=== PATIENT | male | born 1960 | race Caucasian/White ===

== ENCOUNTER 2016-10-11 09:35 | Outpatient (CLI) | payer MEDICARE, MEDICAID | END 2016-10-11 09:36 | disposition home or self-care (01) | DX: S01.84XA Puncture wound with foreign body of other part of head, initial encounter (principal); W34.010A Accidental discharge of airgun, initial encounter ==

== ENCOUNTER 2017-06-06 18:39 | Outpatient (CLI) | payer MEDICARE, MEDICAID | END 2017-06-06 18:40 | disposition critical access hospital (66) | LOC: EMS 18:39 | PROVIDERS: ATTEND Surgery | DX: R41.82 Altered mental status, unspecified (principal) ==

== ENCOUNTER 2017-06-06 18:53 | Emergency (ER) | payer MEDICARE, MEDICAID ==
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
[2017-06-06 19:26] VITALS: BP 165/86
== END 2017-06-06 19:55 | disposition home or self-care (01) ==
LOC: EDUNIT# → ED 18:53
DX: F12.920 Cannabis use, unspecified with intoxication, uncomplicated (principal); F17.200 Nicotine dependence, unspecified, uncomplicated; Z59.0 Homelessness
CPT/HCPCS: 99282; 99283

== ENCOUNTER 2017-06-06 23:00 | Outpatient (CLI) | payer MEDICARE, MEDICAID | END 2017-06-06 23:01 | disposition home or self-care (01) | LOC: EMS 23:00 | PROVIDERS: ATTEND Surgery | DX: R40.20 Unspecified coma (principal); R41.82 Altered mental status, unspecified | CPT/HCPCS: A0425; A0429 ==

== ENCOUNTER 2017-06-06 23:14 | Emergency (ER) | payer MEDICARE, MEDICAID ==
[2017-06-06 23:24] VITALS: BP 153/80
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
== END 2017-06-07 01:25 | disposition left against medical advice (07) ==
LOC: EDUNIT# → ED 23:14
DX: F12.920 Cannabis use, unspecified with intoxication, uncomplicated (principal); S01.01XA Laceration without foreign body of scalp, initial encounter; X58.XXXA Exposure to other specified factors, initial encounter; F17.200 Nicotine dependence, unspecified, uncomplicated; Z59.0 Homelessness; Z62.819 Personal history of unspecified abuse in childhood
CPT/HCPCS: 99282; 99283

== ENCOUNTER 2017-10-18 15:58 | Outpatient (CLI) | payer MEDICARE, MEDICAID | END 2017-10-18 15:59 | disposition critical access hospital (66) | LOC: EMS 15:58 | PROVIDERS: ATTEND Surgery | DX: R10.10 Upper abdominal pain, unspecified (principal) | CPT/HCPCS: A0425; A0429 ==

== ENCOUNTER 2017-10-18 16:13 | Inpatient (IN) | payer MEDICARE, MEDICAID ==
[2017-10-18] MEDS ORDERED: ONDANSETRON 4 MG/2 ML VIAL IVP STA (16:22)
[2017-10-18] MEDS ORDERED: MORPHINE 10 MG/ML VIAL IVP STA ×2 (16:22→17:33)
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
[2017-10-18] MEDS ORDERED: IOPAMIDOL-300 100 ML VIAL ONE (16:39)
[2017-10-18 16:50] LABS: BASOPHILS % (AUTO) 0.9 %; EOSINOPHILS % (AUTO) 0.4 %; HGB - HEMOGLOBIN 13.1 g/dL (14.0-18.0); LYMPHOCYTES % (AUTO) 42.3 %; MEAN CORPUSCULAR HEMOGLOBIN 30.9 pg (27.0-31.0); MEAN CORPUSCULAR HGB CONC 34.3 g/dL (32.0-36.0); MEAN CORPUSCULAR VOLUME 90.1 fL (80.0-94.0); MEAN PLATELET VOLUME 7.9 fL (7.4-11.4); MONOCYTES % (AUTO) 13.9 %; NEUTROPHILS % (AUTO) 42.5 %; PLT - PLATELET COUNT 134 10^3/uL (130-450); RED BLOOD COUNT 4.23 10^6/uL (4.70-6.10); RED CELL DISTRIBUTION WIDTH 14.1 % (12.0-15.0); WHITE BLOOD COUNT 8.5 x10^3/uL (4.8-10.8)
[2017-10-18 16:51] LABS: ABNORMAL LYMPHS % (MANUAL) 0 %
[2017-10-18 17:01] LABS: ALBUMIN 3.3 g/dL (3.2-5.5); ALBUMIN/GLOBULIN RATIO 0.9 (1.0-2.2); ALKALINE PHOSPHATASE 474 IU/L (42-121); ALT ALANINE AMINOTRANSFERASE 947 IU/L (10-60); AST ASPARTATE AMINOTRANSFERASE 1074 IU/L (10-42); BILIRUBIN,TOTAL 1.6 mg/dL (0.2-1.0); BUN - BLOOD UREA NITROGEN 10 mg/dL (6-20); CALCIUM 8.4 mg/dL (8.5-10.3); CARBON DIOXIDE - CO2 27 mmol/L (21-32); CHLORIDE 97 mmol/L (101-111); CREATININE 0.7 mg/dL (0.6-1.2); GFR - MDRD 117 (>89); GLUCOSE 105 mg/dL (70-100); LIPASE 42 U/L (22-51); SODIUM 133 mmol/L (135-145); TOTAL PROTEIN 7.1 g/dL (6.7-8.2)
[2017-10-18 17:10] LABS: BAND NEUTROPHILS % (MANUAL) 3 %; DIFFERENTIAL COMMENT MANUAL DIFFERENTIAL; LYMPHOCYTES # (MANUAL) 4.4 10^3/uL (1.5-3.5); LYMPHOCYTES % (MANUAL) 38 %; METAMYELOCYTES % (MANUAL) 1 %; MONOCYTES # (MANUAL) 0.4 10^3/uL (0.0-1.0); NEUTROPHILS # (MANUAL) 3.6 10^3/uL (1.5-6.6); NEUTROPHILS % (MANUAL) 39 %; PLATELET ESTIMATE, MANUAL NORMAL (130-450,000) (NORMAL); PLATELET MORPHOLOGY NORMAL APPEARANCE (NORMAL); RBC MORPHOLOGY (MULTIPLE) NORMAL APPEARANCE (NORMAL)
[2017-10-18] MEDS ORDERED: IOPAMIDOL-300 100 ML VIAL IVP ONE (17:46)
--- NOTE | 2017-10-18 18:24 | CT Preliminary Report ---
Exam: CT ABDOMEN/PELVIS W/ IMPRESSION: 1. Findings concerning for acute cholecystitis with pericholecystic fluid and/or gallbladder wall thi ckening, though no calcified gallstones demonstrated. Recommend right upper quadrant ultrasound for f urther evaluation. 2. Mild periportal edema, possibly due to volume resuscitation or presumed gallbladder inflammation. 4. Circumferential bladder wall thickening of uncertain etiology, possibly due to underdistention; ho wever, query cystitis. 3. Hepatomegaly of uncertain etiology and clinical significance. 4. Incompletely characterized 13 mm left adrenal nodule. In the absence of known malignancy this most likely represents a benign adenoma and follow-up CT adrenal protocol recommended in 12 months for fu ll characterization. If there is a history of malignancy recommend nonemergent outpatient evaluation with CT adrenal protocol. Comparison to prior cross-sectional imaging of the abdomen would be useful. 5. Additional findings as above. [facility] SITE ID: [id number]
--- NOTE | 2017-10-18 18:40 | CT Report ---
EXAM: CT ABDOMEN AND PELVIS EXAM DATE: 10/18/2017 05:43 PM. CLINICAL HISTORY: IV only, upper abdominal pain. COMPARISONS: None. TECHNIQUE: Routine helical CT imaging was performed through the abdomen and pelvis. IV contrast: 100 mL Isovue-300. Enteric contrast: No. Reconstructions: Coronal and sagittal. In accordance with CT protocol optimization, one or more of the following dose reduction techniques w ere utilized for this exam: automated exposure control, adjustment of mA and/or KV based on patient s ize, or use of iterative reconstructive technique. FINDINGS: Lung Bases: Possible mild circumferential wall thickening of the visualized lower esophagus, query es ophagitis. There is minimal dependent atelectasis. Otherwise unremarkable. Liver: Enlarged, right lobe measuring 21.3 cm in craniocaudal dimension (6/51). No suspicious focal l esion. Gallbladder/Bile Ducts: The gallbladder is distended. There is pericholecystic fluid and possible gal lbladder wall thickening. No calcified stones. No abnormal biliary ductal dilatation. However, there is mild periportal edema. Spleen: Normal. Pancreas: Normal. Adrenal Glands: Normal right adrenal gland. There is an incompletely characterized left adrenal nodul e measuring 13 mm (3/). Kidneys: No masses or hydronephrosis. A left upper pole cyst measures 13 mm (3/). Right upper pole subcentimeter hypodense lesion is too small to fully characterize, statistically likely an additional cyst (3/19). Peritoneal Cavity/Bowel: -No evidence of bowel obstruction or inflammation. There is scattered distal colonic diverticulosis w ithout evidence of acute diverticulitis. Somewhat prominent stool ball present near the rectal vault. Stool burden otherwise within normal limits. -There is some free fluid and/or gallbladder wall thickening in the right upper quadrant as well as p eriportal edema. No free fluid in the low abdomen or pelvis. -The appendix is visualized and normal in the low pelvis (for example ). -No abnormally enlarged lymph nodes. Pelvic Organs: -Urinary bladder is only mildly distended, though there is moderate circumferential bladder wall thic kening. -Prostate is normal size with dystrophic calcifications present. Seminal vesicles are unremarkable. Vasculature: No abdominal aortic aneurysm. The portal vein is patent. There is minimal infrarenal connie cific atherosclerosis also involving the common iliac arteries. Bones: No acute osseous abnormality. No suspicious focal osseous lesion. Mild degenerative spondyliti c change is present in the thoracolumbar spine. Moderate degenerative change is present at the right hip with osteophytic spurring, subchondral sclerosis and subchondral cystic changes. Mild degenerativ e osteophytic spurring also present at both sacroiliac joints, left slightly greater than right. Other: None. IMPRESSION: 1. Findings concerning for acute cholecystitis with pericholecystic fluid and/or gallbladder wall thi ckening, though no calcified gallstones demonstrated. Recommend right upper quadrant ultrasound for f urther evaluation. 2. Mild periportal edema, possibly due to volume resuscitation or presumed gallbladder inflammation. 3. Circumferential bladder wall thickening of uncertain etiology, possibly due to underdistention; ho haydee, query cystitis. 4. Hepatomegaly of uncertain etiology and clinical significance. 5. Incompletely characterized 13 mm left adrenal nodule. In the absence of known malignancy this most likely represents a benign adenoma and follow-up CT adrenal protocol recommended in 12 months for fu ll characterization. If there is a history of malignancy recommend nonemergent outpatient evaluation with CT adrenal protocol. Comparison to prior cross-sectional imaging of the abdomen would be useful. 6. Additional findings as above. [facility] Referring Provider Line: [phone] SITE ID: [id number]
[2017-10-18] MEDS ORDERED: SODIUM CHLORIDE 0.9% 1,000 ML IV ONE (19:03)
[2017-10-18] MEDS ORDERED: LORazepam 2 MG/ML VIAL IVP STA (19:09)
[2017-10-18] MEDS ORDERED: AMPICILLIN/SULBACTAM 3 GM in SODIUM CHLORIDE 0.9% MINIBAG 100 ML IV STA (19:47)
[2017-10-18] MEDS ORDERED: ONDANSETRON 4 MG/2 ML VIAL IVP PRN (19:48)
[2017-10-18] MEDS ORDERED: PROCHLORPERAZINE 10 MG/2 ML VIAL IVP PRN (19:48)
[2017-10-18] MEDS ORDERED: ONDANSETRON ODT 4 MG TABLET TL PRN (19:48)
[2017-10-18] MEDS ORDERED: PIPERACILLIN/TAZOBACTAM 3.375 GM in SODIUM CHLORIDE 0.9% MINIBAG 100 ML IV STA (19:56)
--- NOTE | 2017-10-18 20:44 | Ultrasound Report ---
EXAM: ABDOMEN ULTRASOUND LIMITED, RUQ EXAM DATE: 10/18/2017 08:17 PM. CLINICAL HISTORY: Abdominal pain COMPARISON: 10/18/2017. TECHNIQUE: Real-time scanning was performed with static images obtained. FINDINGS: Liver: Submitted images of liver demonstrate no focal lesions. Main portal vein flow: Hepatopetal. Gallbladder: There is a 1.6 cm mobile stone within the gallbladder. There is gallbladder wall thicken ing. Equivocal sonographic Jimenez sign. Biliary System: CBD measures 5 mm. No intrahepatic or extrahepatic ductal dilatation. Other: The visualized pancreas and right kidney are unremarkable. IMPRESSION: 1. There is a mobile stone within the gallbladder. There is likely anterior gallbladder wall thickeni ng. Equivocal sonographic Jimenez sign. Findings could represent cholecystitis in the proper clinical setting. 2. There is no intra-or extrahepatic bile duct dilatation. [facility] Referring Provider Line: [phone] SITE ID: [id number]
[2017-10-18] MEDS: SODIUM CHLORIDE 0.9% 1,000 ML IV SCH (22:29)
[2017-10-18] MEDS: SODIUM CHLORIDE FLUSH 0.9% 10 ML SYRINGE IVP PRN (22:30)
[2017-10-19] MEDS ORDERED: PIPERACILLIN/TAZOBACTAM 3.375 GM in SODIUM CHLORIDE 0.9% MINIBAG 100 ML IV SCH (02:00)
[2017-10-19] MEDS: SODIUM CHLORIDE FLUSH 0.9% 10 ML SYRINGE IVP SCH ×3 (02:25→14:31)
[2017-10-19] MEDS: PIPERACILLIN/TAZOBACTAM 3.375 GM in SODIUM CHLORIDE 0.9% MINIBAG 100 ML IV SCH ×3 (02:25→17:27)
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
[2017-10-19 05:12] LABS: MUDS CUTOFF CONCENTRATIONS CUTOFF CONC BELOW:
[2017-10-19 05:42] LABS: COCAINE SCREEN URINE NEGATIVE (NEGATIVE)
[2017-10-19 05:43] LABS: AMPHETAMINE SCREEN,URINE POSITIVE (NEGATIVE); BENZODIAZEPINES SCREEN, URINE POSITIVE (NEGATIVE); METHADONE SCREEN, URINE NEGATIVE (NEGATIVE); METHAMPHETAMINES SCREEN, URINE POSITIVE (NEGATIVE); OPIATE SCREEN, URINE POSITIVE (NEGATIVE); OXYCODONE SCREEN, URINE NEGATIVE (NEGATIVE); PROPOXYPHENE SCREEN, URINE NEGATIVE (NEGATIVE); TRICYCLIC ANTIDEPRESSANT,URINE NEGATIVE (NEGATIVE)
[2017-10-19 06:03] LABS: HGB - HEMOGLOBIN 12.6 g/dL (14.0-18.0); LYMPHOCYTES % (AUTO) 48.6 %; MEAN CORPUSCULAR HEMOGLOBIN 29.8 pg (27.0-31.0); MEAN CORPUSCULAR VOLUME 90.3 fL (80.0-94.0); MEAN PLATELET VOLUME 8.6 fL (7.4-11.4); MONOCYTES % (AUTO) 11.5 %; NEUTROPHILS % (AUTO) 38.9 %; PLT - PLATELET COUNT 115 10^3/uL (130-450); RED BLOOD COUNT 4.22 10^6/uL (4.70-6.10); RED CELL DISTRIBUTION WIDTH 14.5 % (12.0-15.0); WHITE BLOOD COUNT 11.5 x10^3/uL (4.8-10.8)
[2017-10-19 06:21] LABS: ABNORMAL LYMPHS % (MANUAL) 0 %
[2017-10-19] MEDS: SODIUM CHLORIDE FLUSH 0.9% 10 ML SYRINGE IVP PRN (06:35)
[2017-10-19] MEDS: PANTOPRAZOLE 40 MG VIAL IVP SCH ×2 (06:35→15:51)
[2017-10-19] MEDS: SODIUM CHLORIDE 0.9% 1,000 ML IV SCH ×2 (06:38→16:16)
[2017-10-19 07:09] LABS: ALBUMIN/GLOBULIN RATIO 0.9 (1.0-2.2); BILIRUBIN,TOTAL 3.5 mg/dL (0.2-1.0); CALCIUM 7.9 mg/dL (8.5-10.3); CREATININE 0.7 mg/dL (0.6-1.2); TOTAL PROTEIN 6.2 g/dL (6.7-8.2)
[2017-10-19 07:19] LABS: BAND NEUTROPHILS % (MANUAL) 1 %; LYMPHOCYTES # (MANUAL) 5.6 10^3/uL (1.5-3.5); LYMPHOCYTES % (MANUAL) 35 %; NEUTROPHILS # (MANUAL) 4.8 10^3/uL (1.5-6.6); NEUTROPHILS % (MANUAL) 41 %
[2017-10-19 07:22] LABS: DIFFERENTIAL COMMENT MANUAL DIFFERENTIAL; PLATELET ESTIMATE, MANUAL DECREASED (<130,000) (NORMAL); PLATELET MORPHOLOGY NORMAL APPEARANCE (NORMAL); RBC MORPHOLOGY (MULTIPLE) NORMAL APPEARANCE (NORMAL)
[2017-10-19] MEDS: POLYETHYLENE GLYCOL 3350 17 GM PACKET PO SCH (08:19)
[2017-10-19] MEDS: oxyCODONE 5 MG TABLET PO PRN ×2 (08:19→13:08)
[2017-10-19] MEDS: IBUPROFEN 400 MG TABLET PO PRN (08:19)
[2017-10-19] MEDS: NICOTINE 21 MG PATCH TOP SCH (11:27)
[2017-10-19 13:43] LABS: HEPATITIS A IGM NON-REACTIVE (NON-REACTIVE); HEPATITIS B CORE ANTIBODY IGM NON-REACTIVE (NON-REACTIVE); HEPATITIS B SURFACE ANTIGEN NON-REACTIVE (NON-REACTIVE); HEPATITIS C ANTIBODY REACTIVE (NON-REACTIVE)
[2017-10-19] MEDS ORDERED: LORazepam 2 MG/ML VIAL IVP PRN (14:16)
[2017-10-19] MEDS: HYDROmorphone 0.5 MG/0.5 ML SYRINGE IVP PRN ×4 (14:31→22:05)
--- NOTE | 2017-10-19 15:10 | Nuclear Medicine Report ---
EXAM: HEPATOBILIARY SCAN EXAM DATE: 10/19/2017 02:33 PM. CLINICAL HISTORY: Epigastric pain COMPARISON: 10/18/2017 TECHNIQUE: Following the intravenous administration of 8.6 mCi of Tc99m Mebrofenin, a hepatobiliary s can was done centered on the right upper quadrant region in multiple sequential images and projection s. Morphine sulfate given: None. Four-hour delayed images performed: No. FINDINGS: Delayed extraction of radiotracer from blood pool is suggestive of hepatic dysfunction, pos sibly from underlying hepatitis. Bilateral uptake activity is not seen during the course of the examination. Gallbladder activity is n ot seen. No activity seen within the gastrointestinal tract. The patient terminated the examination after 25 minutes. IMPRESSION: 1. Limited examination. The patient terminated the examination after 25 minutes. 2. There is persistence of radiotracer within blood pool, suggestive of hepatic dysfunction. This cou ld be secondary to underlying hepatitis. 3. Bile duct and gallbladder activity are not seen during the course of the examination. [facility] Referring Provider Line: [phone] SITE ID: [id number]
[2017-10-19] MEDS ORDERED: D5NS W/20 MEQ KCL 1,000 ML IV STA (16:42)
--- NOTE | 2017-10-19 16:47 | PROVIDER PROGRESS NOTE ---
Subjective - Prog Note Date Prog Note Date: 10/19/17 - Subjective Pt reports feeling: No change, Worse Subjective: pt complain of pain on right upper quadrant. he denies fever, chest pain, cough , SOB Current Medications - Current Medications Current Medications: Active Medications Hydromorphone HCl (Dilaudid Inj Syringe) 0.5 mg IVP Q2H PRN PRN Reason: PAIN Last Admin: 10/19/17 14:31 Dose: 0.5 mg Piperacillin Sod/Tazobactam (Sod 3.375 gm/ Sodium Chloride) 100 mls @ 25 mls/ hr IV Q8H [facility] Last Admin: 10/19/17 11:28 Dose: 25 mls/hr Potassium Chloride/Dextrose/Sod Cl () 1,000 mls @ 83.333 mls/hr IV .Q12H [facility] Stop: 10/20/17 04:41 Ibuprofen (Motrin) 400 mg PO Q4HR PRN PRN Reason: Pain 1 to 4 Last Admin: 10/19/17 08:19 Dose: 400 mg Nicotine (Nicoderm) 1 patch TOP DAILY [facility] Last Admin: 10/19/17 11:27 Dose: 1 patch Ondansetron HCl (Zofran Inj) 4 mg IVP Q6HR PRN PRN Reason: Nausea / Vomiting Ondansetron HCl (Zofran Odt) 4 mg TL Q6HR PRN PRN Reason: Nausea / Vomiting Pantoprazole Sodium (Protonix) 40 mg IVP BIDAC [facility] Last Admin: 10/19/17 15:51 Dose: 40 mg Polyethylene Glycol (Miralax) 17 gm PO DAILY [facility] Last Admin: 10/19/17 08:19 Dose: 17 gm Prochlorperazine Edisylate (Compazine Inj) 10 mg IVP Q6HR PRN PRN Reason: Nausea / Vomiting Sodium Chloride (Normal Saline Flush 0.9%) 10 ml IVP PRN PRN PRN Reason: NEEDED PER PROVIDER ORDERS Last Admin: 10/19/17 06:35 Dose: 10 ml Sodium Chloride (Normal Saline Flush 0.9%) 10 ml IVP 0100,0900,1700 [facility] Last Admin: 10/19/17 14:31 Dose: 10 ml No Known Home Medications [No Known Home Medications] 10/18/17 Objective - Vital Signs/Intake & Output Reviewed Vital Signs: Yes Vital Signs: Vital Signs x48h Temp Pulse Resp BP Pulse Ox 10/19/17 16:00 37.7 C H 68 20 139/76 H 94 Intake & Output: Intake & Output 10/16/17 10/17/17 10/18/17 10/19/17 23:59 23:59 23:59 23:59 Intake Total 50 Output Total 600 Balance -550 - Objective General Appearance: positive: No acute distress, Alert. negative: Lethargic Eyes Bilateral: positive: Normal inspection, PERRL, No lid inflammation, Conjunctivae nml ENT: positive: ENT inspection nml, Pharynx nml, No signs of dehydration. negative: Purulent nasal drainage, Pharyngeal erythema, Oral lesions, Dry mucous membranes Neck: positive: Nml inspection, Thyroid nml, No JVD, Trachea midline. negative : Thyromegaly, Lymphadenopathy (R), Lymphadenopathy (L), Stiff neck, Carotid bruit, Swelling/bruising, Tracheal deviation Respiratory: positive: Chest non-tender, No respiratory distress, Breath sounds nml. negative: Wheezes, Rales, Rhonchi Cardiovascular: positive: Regular rate & rhythm, No murmur, No gallop. negative : Irregularly irregular, Extrasystoles, Tachycardia, Bradycardia, JVD present, Systolic murmur, Diastolic murmur Peripheral Pulses: 2+ Radial (R), 2+ Radial (L), 2+ Dorsalis pedis (R), 2+ Dorsalis pedis (L) Abdomen: positive: No organomegaly, Nml bowel sounds, No distention, Tenderness. negative: Guarding, Rebound Back: positive: Nml inspection. negative: CVA tenderness (R), CVA tenderness (L ) Skin: positive: Color nml, No rash, Warm, Dry. negative: Cyanosis, Diaphoresis , Pallor Extremities: positive: Non-tender, Full ROM, Nml appearance. negative: Calf tenderness, Joint swelling, Serena's sign/cords Neurologic/Psychiatric: positive: Motor nml, Sensation nml. negative: Weakness , Sensory loss, Facial droop, Slurred/abnml speech, Depressed mood/affect - Lab Results Fish Bones: 10/19/17 05:40 10/19/17 05:40 Assessment/Plan - Problem List (1) Right upper quadrant abdominal pain Impression: Pt will have HIDA scan today, will follow up surgeon was consulted, will follow up continue pain control continue Zosyn continue IVF continue vital monitor order blood culture since pt had low degree fever on last night, and homeless living condition. (2) Elevated liver enzymes Impression: pt has hx of HepC, not treated. test review positive HepC, RNA of HepC is pending. 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 pt continue to use. pt may present withdrawal of illicit drug consult pt quit continue to support (4) Hyponatremia Impression: Na 131, likely hypovolume hyponatremia continue NS IVF. Switch to D5 0.9% NS for NPO
[2017-10-19 19:20] LABS: INR 1.4 (0.8-1.2); PT - PROTHROMBIN TIME 15.9 secs (9.9-12.6)
--- NOTE | 2017-10-19 19:45 | CONSULTATION NOTE ---
Referring Provider Name of Referring Provider:: Jeane Garcia MD Consult Date: 10/18/17 Chief Complaint - Chief Complaint Chief Complaint: RIGHT upper quadrant pain History of Present Illness - Admitted From Admitted From:: [facility] ED - History Obtained From Records Reviewed: Yes History obtained from: Primarily records as patient is confabulating Exam Limitations: Patient's mental status/state precludes a truly meaningful interaction - History of Present Illness HPI Comment/Other: Dr. Jeane Garcia asked that I consult on this 57 year old homeless man to evaluate him for the etiology of his right upper quadrant pain and possibly treat him if it was found to be the result of surgically correctable disease. It is impossible to get a straight answer from this patient. He tells me that "the illuminati sent him." He states that he "is going to go Naveed Schultz on people but that instead of bombs he [sic] uses his mouth." He states that no one has fed him in this hospital for the past 5 days even though he has only been in the hospital less than 24 hours. He states that the pain is sometimes associated with eating and other times not associated with eating. He describes the pain as severe but cannot tell me sharp or burning. He states that he is nauseous but also is hungry - very hungry. He denies melena or hematochezia. He states that he has occasional hematemesis but cannot explain further. He tells me that he was incarcerated for murder and armed robbery but he was innocent of all the charges. History - Past Medical History GI: reports: GERD - POLST Patient has POLST: No Meds/Allgy - Home Medications Home Medications: Ambulatory Orders Medication Instructions Recorded Confirmed No Known Home Medications [No 10/18/17 10/19/17 Known Home Medications] - Allergies Allergies/Adverse Reactions: Allergies Allergy/AdvReac Type Severity Reaction Status Date / Time No Known Drug Allergies Allergy Verified 10/18/17 16:22 Review of Systems - Constitutional Constitutional: reports: Other (Meaningless as the patient confabulates and does not answer questions directly regarding any signs and symptoms.) Exam - Vital Signs Reviewed Vital Signs: Yes Vital Signs: Vital Signs x48h Temp Pulse Resp BP Pulse Ox 10/19/17 16:00 37.7 C H 68 20 139/76 H 94 - Physical Exam General Appearance: positive: Anxious Eyes Bilateral: positive: No lid inflammation, Conjunctivae nml, Other (Mild scleral icterus.) ENT: positive: Dry mucous membranes Neck: positive: Trachea midline Respiratory: positive: Chest non-tender, No respiratory distress, Breath sounds nml Cardiovascular: positive: Regular rate & rhythm Abdomen: positive: Tenderness (Primarily in the epigastric area and subjectively less so in the RUQ. No peritoneal findings. Reaction to any sensation is exuberant (Ama (lab) taking tape off of his arm to draw blood caused him to scream).) Skin: positive: Dry Extremities: positive: Nml appearance Neurologic/Psychiatric: positive: Other (Pressured most often non-sensical speech.) Conclusion/Plan - Diagnosis Diagnosis: Hepatic dysfunction - Plan Plan: After reviewing his labs and X-rays and examining the patient, I am left with the conclusion that this is likely hepatic dysfunction. This is based on the markedly elevated ALT and AST and elevated bilirubin without radiographic evidence of obstruction. What little non-sensical history that I could get from him was not consistent with symptomatic cholelithiasis and he terminated his CCK-HIDA today prematurely. Despite this, the preliminary data from the CCK -HIDA suggested hepatic dysfunction. Just in case anyone was still considering surgical intervention. He is at prohibitively high risk. In calculating his Alycia class he is a "B" (based on bilirubin >3 mg/dL, albumin 2-8-3.5 mg/dL, INR ,1.7, ascites absent and encephalopathy Grade 1). This places him a 30% perioperative mortality. In determining his MELD score he totals 19 points which indicates a 6% 3 month mortality. Both of these scores suggest that he see a senior java web application developer/liver transplant specialist for evaluation but there is NO POSSIBLE WAY that he will be considered for liver transplantation due to his use of illicit drugs. He simply cannot receive/give informed consent. I recommend supportive therapy and Actigall 300 mg tab po BID. I am not under the illusion that he will be compliant with this medication upon discharge but while he is under our care I feel it could help. Lastly, his hepatitis C titers suggest that this is an ongoing problem. If he is discharged without an ongoing plan (that he will adhere to) there is no doubt that he will return to our or another ED with a worse clinical picture. Thank you for consulting me on this patient with a very difficult clinical problem. - Lab Results Lab results reviewed: Yes Fish Bones: 10/19/17 05:40 10/19/17 05:40 - Diagnostic Imaging Results Diagnostic Imaging Results: positive: Final report reviewed, Read independently
[2017-10-20] MEDS: SODIUM CHLORIDE FLUSH 0.9% 10 ML SYRINGE IVP SCH ×3 (00:58→17:04)
[2017-10-20] MEDS: HYDROmorphone 0.5 MG/0.5 ML SYRINGE IVP PRN ×4 (01:29→22:00)
[2017-10-20] MEDS: IBUPROFEN 400 MG TABLET PO PRN ×2 (01:37→11:07)
[2017-10-20] MEDS: PIPERACILLIN/TAZOBACTAM 3.375 GM in SODIUM CHLORIDE 0.9% MINIBAG 100 ML IV SCH ×3 (01:47→17:03)
[2017-10-20] MEDS ORDERED: SODIUM CHLORIDE 0.9% 1,000 ML IV ONE (02:56)
[2017-10-20] MEDS ORDERED: HALOPERIDOL 5 MG/ML VIAL IM ONE (03:08)
[2017-10-20] MEDS ORDERED: SODIUM CHLORIDE 0.9% 500 ML IV ONE (03:08)
[2017-10-20] MEDS ORDERED: LORazepam 2 MG/ML VIAL IVP STA (03:09)
[2017-10-20 03:18] LABS: BASOPHILS % (AUTO) 0.8 %; EOSINOPHILS % (AUTO) 0.1 %; HGB - HEMOGLOBIN 12.8 g/dL (14.0-18.0); LYMPHOCYTES % (AUTO) 54.6 %; MEAN CORPUSCULAR HEMOGLOBIN 30.8 pg (27.0-31.0); MEAN CORPUSCULAR HGB CONC 34.2 g/dL (32.0-36.0); MEAN PLATELET VOLUME 8.1 fL (7.4-11.4); MONOCYTES % (AUTO) 14.5 %; PLT - PLATELET COUNT 96 10^3/uL (130-450); RED BLOOD COUNT 4.15 10^6/uL (4.70-6.10); RED CELL DISTRIBUTION WIDTH 14.6 % (12.0-15.0)
[2017-10-20 03:19] LABS: ALBUMIN 2.6 g/dL (3.2-5.5); ALBUMIN/GLOBULIN RATIO 0.8 (1.0-2.2); BILIRUBIN,TOTAL 4.3 mg/dL (0.2-1.0); CALCIUM 7.7 mg/dL (8.5-10.3); CREATININE 0.6 mg/dL (0.6-1.2); MAGNESIUM 1.7 mg/dL (1.7-2.8); TOTAL PROTEIN 5.8 g/dL (6.7-8.2)
[2017-10-20 04:33] LABS: ABNORMAL LYMPHS % (MANUAL) 1 %; BAND NEUTROPHILS % (MANUAL) 2 %; LYMPHOCYTES # (MANUAL) 6.8 10^3/uL (1.5-3.5); LYMPHOCYTES % (MANUAL) 21 %; MONOCYTES # (MANUAL) 0.2 10^3/uL (0.0-1.0); NEUTROPHILS % (MANUAL) 34 %
[2017-10-20 04:35] LABS: DIFFERENTIAL COMMENT MANUAL DIFFERENTIAL; PLATELET ESTIMATE, MANUAL DECREASED (<130,000) (NORMAL); PLATELET MORPHOLOGY NORMAL APPEARANCE (NORMAL); RBC MORPHOLOGY (MULTIPLE) NORMAL APPEARANCE (NORMAL)
[2017-10-20] MEDS: PANTOPRAZOLE 40 MG VIAL IVP SCH ×2 (06:20→17:04)
[2017-10-20] MEDS: SODIUM CHLORIDE FLUSH 0.9% 10 ML SYRINGE IVP PRN (06:20)
[2017-10-20] MEDS ORDERED: CALCIUM GLUCONATE 1,000 MG in SODIUM CHLORIDE 0.9% 50 ML IV SCH (09:00)
[2017-10-20] MEDS: POLYETHYLENE GLYCOL 3350 17 GM PACKET PO SCH (09:53)
[2017-10-20] MEDS: NICOTINE 21 MG PATCH TOP SCH (10:31)
[2017-10-20] MEDS: URSODIOL 250 MG TABLET PO SCH ×3 (11:06→17:13)
[2017-10-20 12:02] LABS: HCV RNA QNT 7.46 Log IU/mL (NOT DETECTED); HCV RNA QUANT RT PCR 28700000 IU/mL (NOT DETECTED)
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
[2017-10-20] MEDS: SODIUM CHLORIDE 0.9% 1,000 ML IV SCH (17:03)
[2017-10-20] MEDS ORDERED: HALOPERIDOL 5 MG/ML VIAL IM SCH (21:52)
[2017-10-20] MEDS: LORazepam 2 MG/ML VIAL IVP PRN (22:00)
[2017-10-21] MEDS: HYDROmorphone 0.5 MG/0.5 ML SYRINGE IVP PRN ×6 (00:08→15:06)
[2017-10-21] MEDS: SODIUM CHLORIDE FLUSH 0.9% 10 ML SYRINGE IVP SCH ×3 (00:15→17:32)
[2017-10-21] MEDS: PIPERACILLIN/TAZOBACTAM 3.375 GM in SODIUM CHLORIDE 0.9% MINIBAG 100 ML IV SCH ×3 (01:56→17:33)
[2017-10-21] MEDS: PANTOPRAZOLE 40 MG VIAL IVP SCH ×2 (06:19→17:32)
[2017-10-21] MEDS: LORazepam 2 MG/ML VIAL IVP PRN ×3 (06:19→15:06)
[2017-10-21 06:26] LABS: BASOPHILS % (AUTO) 1.4 %; EOSINOPHILS % (AUTO) 0.1 %; HGB - HEMOGLOBIN 12.6 g/dL (14.0-18.0); LYMPHOCYTES % (AUTO) 75.5 %; MEAN CORPUSCULAR HEMOGLOBIN 30.1 pg (27.0-31.0); MEAN CORPUSCULAR HGB CONC 33.1 g/dL (32.0-36.0); MEAN CORPUSCULAR VOLUME 90.8 fL (80.0-94.0); MEAN PLATELET VOLUME 8.5 fL (7.4-11.4); MONOCYTES % (AUTO) 6.9 %; NEUTROPHILS % (AUTO) 16.1 %; PLT - PLATELET COUNT 129 10^3/uL (130-450); RED BLOOD COUNT 4.19 10^6/uL (4.70-6.10); WHITE BLOOD COUNT 17.5 x10^3/uL (4.8-10.8)
[2017-10-21 06:32] LABS: ABNORMAL LYMPHS % (MANUAL) 0 %; BAND NEUTROPHILS % (MANUAL) 0 %
[2017-10-21 06:48] LABS: ALBUMIN 2.4 g/dL (3.2-5.5); ALBUMIN/GLOBULIN RATIO 0.7 (1.0-2.2); BILIRUBIN,TOTAL 5.2 mg/dL (0.2-1.0); CALCIUM 7.5 mg/dL (8.5-10.3); CREATININE 0.6 mg/dL (0.6-1.2); TOTAL PROTEIN 5.9 g/dL (6.7-8.2)
[2017-10-21 06:52] LABS: EOSINOPHILS # (MANUAL) 0.2 10^3/uL (0-0.7); LYMPHOCYTES # (MANUAL) 13.3 10^3/uL (1.5-3.5); LYMPHOCYTES % (MANUAL) 35 %; MONOCYTES # (MANUAL) 0.5 10^3/uL (0.0-1.0); NEUTROPHILS # (MANUAL) 3.5 10^3/uL (1.5-6.6); NEUTROPHILS % (MANUAL) 20 %
[2017-10-21 06:55] LABS: DIFFERENTIAL COMMENT MANUAL DIFFERENTIAL; PLATELET ESTIMATE, MANUAL NORMAL (130-450,000) (NORMAL); PLATELET MORPHOLOGY NORMAL APPEARANCE (NORMAL); RBC MORPHOLOGY (MULTIPLE) NORMAL APPEARANCE (NORMAL)
[2017-10-21] MEDS ORDERED: CALCIUM GLUCONATE 1,000 MG in SODIUM CHLORIDE 0.9% 50 ML IV ONE (07:24)
[2017-10-21] MEDS ORDERED: CALCIUM CITRATE 250 MG TABLET PO SCH (08:00)
[2017-10-21] MEDS: URSODIOL 250 MG TABLET PO SCH ×2 (08:48→18:59)
[2017-10-21] MEDS: NICOTINE 21 MG PATCH TOP SCH (08:49)
[2017-10-21] MEDS: POLYETHYLENE GLYCOL 3350 17 GM PACKET PO SCH (08:49)
[2017-10-21] MEDS: SODIUM CHLORIDE 0.9% 1,000 ML IV SCH (10:29)
[2017-10-21] MEDS ORDERED: LORazepam 2 MG/ML VIAL IVP STA (10:53)
--- NOTE | 2017-10-21 13:58 | MRI Report ---
EXAM: MR ABDOMEN WITHOUT CONTRAST (MR CHOLANGIOPANCREATOGRAPHY) EXAM DATE: 10/21/2017 01:12 PM. CLINICAL HISTORY: Right upper quadrant pain, gallstone. COMPARISON: Abdominal ultrasound and CT abdomen and pelvis 10/18/2017. HIDA scan 10/19/2017. TECHNIQUE: Multiplanar breath-hold T1 and T2 sequences obtained through the abdomen on an MR scanner. Dedicated 2D and 3D MRCP sequences obtained through the biliary and pancreatic ducts. No intravenous contrast given. FINDINGS: Lung Bases: Interval small right pleural effusion and subjacent atelectasis. Gallbladder: A 1.6 cm gallstone in the gallbladder. Increased T2 signal surrounding the gallbladder l ikely reflects gallbladder wall edema, inseparable from inflammatory pericholecystic T2 hyperintensit y tracking anteriorly and posterior inferiorly from the gallbladder fossa. Bile Ducts: No intrahepatic or extrahepatic ductal dilatation. CBD measures up to 5.2 mm in diameter. No intraductal filling defect or obstructing lesion identified. Liver: Enlarged with right lobe 22.6 cm in height. Smooth capsule. No focal lesion identified. No sig nificant signal loss on opposed phase gradient echo to suggest steatosis. Pancreas: No obvious mass or focal abnormality identified without IV contrast. Mildly generous MPD up to 3 mm at the level of the body. Spleen: Upper normal in size without focal lesion. Adrenals: Mild diffuse left adrenal thickening without distinct nodule identified. Motion artifact pr ecludes detailed evaluation on in phase/out of phase gradient echo. Unremarkable right adrenal. Kidneys: No hydronephrosis. A 1.6 cm left upper pole cyst. Other: No dilatation of the visualized bowel. Small perihepatic free fluid. Small periportal nodes. P rominent portacaval node 1.7 cm short axis (14/501). No marrow replacement process identified. IMPRESSION: 1. Cholelithiasis with thickened gallbladder wall and pericholecystic infiltration concerning for acu te cholecystitis. 2. No dilated bile ducts or suggestion of choledocholithiasis. CBD 5.2 mm in diameter. 3. Hepatomegaly with no focal abnormality or nodular liver capsule to indicate joellen cirrhosis. Upper normal spleen size. 4. Slightly prominent main pancreatic duct. Otherwise grossly unremarkable pancreas. 5. Nonspecific mild left adrenal thickening,, likely benign hyperplasia or adenomatous change. 6. A small left renal cyst. 7. Interval small right pleural effusion and subjacent atelectasis. [facility] Referring Provider Line: [phone] SITE ID: [id number]
--- NOTE | 2017-10-21 16:01 | PROVIDER PROGRESS NOTE ---
Subjective - Prog Note Date Prog Note Date: 10/21/17 - Subjective Pt reports feeling: No change Subjective: pt still complain upper quadrant pain, "not better." Pt did finish MRCP which again concerned acute cholecystitis, no dilated bile ducts. Current Medications - Current Medications Current Medications: Active Medications Calcium Citrate () 250 mg PO DAILY [facility] Hydromorphone HCl (Dilaudid Inj Syringe) 0.5 mg IVP Q2H PRN PRN Reason: PAIN Last Admin: 10/21/17 15:06 Dose: 0.5 mg Piperacillin Sod/Tazobactam (Sod 3.375 gm/ Sodium Chloride) 100 mls @ 25 mls/ hr IV Q8H [facility] Last Admin: 10/21/17 09:47 Dose: 25 mls/hr Sodium Chloride (Normal Saline 0.9%) 1,000 mls @ 75 mls/hr IV .[id number] [facility] Last Admin: 10/21/17 10:29 Dose: 75 mls/hr Ibuprofen (Motrin) 400 mg PO Q4HR PRN PRN Reason: Pain 1 to 4 Last Admin: 10/20/17 01:37 Dose: 400 mg Lorazepam (Ativan Inj (Vial)) 0.5 mg IVP Q2H PRN PRN Reason: Anxiety Last Admin: 10/21/17 15:06 Dose: 0.5 mg Nicotine (Nicoderm) 1 patch TOP DAILY [facility] Last Admin: 10/21/17 08:49 Dose: Not Given Ondansetron HCl (Zofran Inj) 4 mg IVP Q6HR PRN PRN Reason: Nausea / Vomiting Ondansetron HCl (Zofran Odt) 4 mg TL Q6HR PRN PRN Reason: Nausea / Vomiting Pantoprazole Sodium (Protonix) 40 mg IVP BIDAC [facility] Last Admin: 10/21/17 06:19 Dose: 40 mg Polyethylene Glycol (Miralax) 17 gm PO DAILY [facility] Last Admin: 10/21/17 08:49 Dose: Not Given Prochlorperazine Edisylate (Compazine Inj) 10 mg IVP Q6HR PRN PRN Reason: Nausea / Vomiting Sodium Chloride (Normal Saline Flush 0.9%) 10 ml IVP PRN PRN PRN Reason: NEEDED PER PROVIDER ORDERS Last Admin: 10/20/17 06:20 Dose: 10 ml Sodium Chloride (Normal Saline Flush 0.9%) 10 ml IVP 0100,0900,1700 [facility] Last Admin: 10/21/17 08:49 Dose: Not Given Ursodiol (Savage 250) 250 mg PO BIDWM [facility] Last Admin: 10/21/17 08:48 Dose: 250 mg No Known Home Medications [No Known Home Medications] 10/18/17 Objective - Vital Signs/Intake & Output Reviewed Vital Signs: Yes Vital Signs: Vital Signs x48h Temp Pulse Resp BP Pulse Ox 10/21/17 09:23 36.8 C 56 L 14 102/56 L 95 Intake & Output: Intake & Output 10/18/17 10/19/17 10/20/17 10/21/17 23:59 23:59 23:59 23:59 Intake Total 340 3912.20 2170.0 Output Total 1125 3100 1800 Balance -785 812.20 370.0 - Objective General Appearance: positive: No acute distress, Alert. negative: Lethargic Eyes Bilateral: positive: Normal inspection, PERRL, No lid inflammation, Conjunctivae nml ENT: positive: ENT inspection nml, Pharynx nml, No signs of dehydration. negative: Purulent nasal drainage, Pharyngeal erythema, Oral lesions Neck: positive: Nml inspection, Thyroid nml, No JVD, Trachea midline. negative : Thyromegaly, Lymphadenopathy (R), Lymphadenopathy (L), Stiff neck, Carotid bruit, Swelling/bruising, Tracheal deviation Respiratory: positive: Chest non-tender, No respiratory distress, Breath sounds nml. negative: Wheezes, Rales, Rhonchi Cardiovascular: positive: Regular rate & rhythm, No murmur, No gallop. negative : Irregularly irregular, Extrasystoles, Tachycardia, Bradycardia, Systolic murmur, Diastolic murmur Peripheral Pulses: 2+ Radial (R), 2+ Radial (L), 2+ Dorsalis pedis (R), 2+ Dorsalis pedis (L) Abdomen: positive: No organomegaly, Nml bowel sounds, No distention, Tenderness. negative: Guarding, Rebound Back: positive: Nml inspection. negative: CVA tenderness (R), CVA tenderness (L ) Skin: positive: Color nml, No rash, Warm, Dry. negative: Cyanosis, Diaphoresis , Pallor, Skin rash Extremities: positive: Non-tender, Full ROM, Nml appearance. negative: Calf tenderness, Joint swelling, Serena's sign/cords Neurologic/Psychiatric: positive: Motor nml, Sensation nml. negative: Sensory loss, Facial droop, Slurred/abnml speech, Depressed mood/affect - Lab Results Fish Bones: 10/21/17 06:11 10/21/17 06:11 Other Labs: Lab Results x24hrs 10/21/17 10/21/17 Range/Units 06:11 06:11 WBC 17.5 H (4.8-10.8) x10^3/uL RBC 4.19 L (4.70-6.10) 10^6/uL Hgb 12.6 L (14.0-18.0) g/dL Hct 38.1 L (42.0-52.0) % MCV 90.8 (80.0-94.0) fL MCH 30.1 (27.0-31.0) pg MCHC 33.1 (32.0-36.0) g/dL RDW 15.0 (12.0-15.0) % Plt Count 129 L (130-450) 10^3/uL MPV 8.5 (7.4-11.4) fL Neut # Not Reportable Lymph # Not Reportable [place] # Not Reportable Eos # Not Reportable Baso # Not Reportable Absolute Nucleated RBC Not Reportable Total Counted 100 Band Neuts % (Manual) 0 (0 - 10) % Reactive Lymphs % (Man) 41 % Abnorm Lymph % (Manual) 0 % Nucleated RBC % Not Reportable Neutrophils # (Manual) 3.5 (1.5-6.6) 10^3/uL Lymphocytes # (Manual) 13.3 H (1.5-3.5) 10^3/uL Monocytes # (Manual) 0.5 (0.0-1.0) 10^3/uL Eosinophils # (Manual) 0.2 (0-0.7) 10^3/uL Basophils # (Manual) 0.0 (0-0.1) 10^3/uL Differential Comment MANUAL DIFFERENTIAL Platelet Estimate NORMAL (130-450,000) (NORMAL) Platelet Morphology NORMAL APPEARANCE (NORMAL) RBC Morph Micro Appear NORMAL APPEARANCE (NORMAL) Sodium 129 L (135-145) mmol/L Potassium 4.2 (3.5-5.0) mmol/L Chloride 98 L (101-111) mmol/L Carbon Dioxide 25 (21-32) mmol/L Anion Gap 6.0 (6-13) BUN 11 (6-20) mg/dL Creatinine 0.6 (0.6-1.2) mg/dL Estimated GFR (MDRD) 140 (>89) Glucose 157 H (70-100) mg/dL Calcium 7.5 L (8.5-10.3) mg/dL Total Bilirubin 5.2 H (0.2-1.0) mg/dL AST 521 H (10-42) IU/L ALT 1021 H (10-60) IU/L Alkaline Phosphatase 405 H (42-121) IU/L Total Protein 5.9 L (6.7-8.2) g/dL Albumin 2.4 L (3.2-5.5) g/dL Globulin 3.5 (2.1-4.2) g/dL Albumin/Globulin Ratio 0.7 L (1.0-2.2) ABX Reporting Has patient been on IV antibiotics over the past 48 hours?: Yes Assessment/Plan - Problem List (1) Right upper quadrant abdominal pain Impression: Impression: pt still complain pain at right upper quadrant, "not better." MRCP is finished, and reveals concerning of acute cholecystitis as CT and US result. pt's WBC rise significantly today, and total bilirubin is continuing rise, clinic deteriorate. continue antibiotics will call or [facility] for help or be transferred since pt is not operated in our facility pt still complain of right upper quadrant pt. Pt terminated the HIDA scan order MRCP, will follow up surgeon recommended [place], will follow up continue antibiotics continue pain control Pt will have HIDA scan today, will follow up surgeon was consulted, will follow up continue pain control continue Zosyn continue IVF continue vital monitor order blood culture since pt had low degree fever on last night, and homeless living condition. (2) Elevated liver enzymes Impression: slight better than yesterday pt has active HepC, and RNA copy is very high, pt need ID as out-pt, will call [employer] [facility] continue lab monitor, still elevated liver enzymes and bili continue support. Ammonia level is normal. HepC RNA pending pt has hx of HepC, not treated. test review positive HepC, RNA of HepC is pending. 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 pt continue to use. pt may present withdrawal of illicit drug consult pt quit continue to support (4) Hyponatremia Impression: Na is 129, continue gently IV of NS, daily lab monitor Na 128, it seems hypovolum hyponatremia gently NS IVF daily lab monitor Na 131, likely hypovolume hyponatremia continue NS IVF. Switch to D5 0.9% NS for NPO (5)elevated total bilirubin today is 5.2 from 3.5, pt is active HepC and acute cholecystitis continue lab monitor (6)lymphocytosis today WBC 17.5 from 11. pt is active HepC with high RNA copies and acute cholecystitis lab monitor, and support (7)active HepC high copies of RNA, PCR log is 7.4 degree. will call ID for help. (8) Hallucination/illusion still has some hallucination, combination of illicit drug abuse and underline psych neuro check pt may undergo underline psych medical problem, plus possible withdrawal of illicit drug abuse, hepatic encephalopathy, even Ammonia level in normal neuro check, consider psych evaluation as medical condition is stable.
[2017-10-21] MEDS ORDERED: HALOPERIDOL 5 MG/ML VIAL IVP ONE (16:36)
[2017-10-21] MEDS ORDERED: HALOPERIDOL 5 MG/ML VIAL IM ONE (16:38)
[2017-10-22] MEDS: SODIUM CHLORIDE FLUSH 0.9% 10 ML SYRINGE IVP SCH ×2 (00:42→08:27)
[2017-10-22] MEDS: PIPERACILLIN/TAZOBACTAM 3.375 GM in SODIUM CHLORIDE 0.9% MINIBAG 100 ML IV SCH ×2 (02:15→09:13)
[2017-10-22] MEDS: HYDROmorphone 0.5 MG/0.5 ML SYRINGE IVP PRN ×4 (03:02→15:24)
[2017-10-22] MEDS: LORazepam 2 MG/ML VIAL IVP PRN ×4 (03:47→15:23)
[2017-10-22] MEDS: SODIUM CHLORIDE 0.9% 1,000 ML IV SCH (05:15)
[2017-10-22 05:52] LABS: BASOPHILS % (AUTO) 1.3 %; EOSINOPHILS % (AUTO) 0.3 %; HGB - HEMOGLOBIN 12.7 g/dL (14.0-18.0); LYMPHOCYTES % (AUTO) 61.9 %; MEAN CORPUSCULAR HEMOGLOBIN 29.8 pg (27.0-31.0); MEAN CORPUSCULAR HGB CONC 32.9 g/dL (32.0-36.0); MEAN CORPUSCULAR VOLUME 90.3 fL (80.0-94.0); MEAN PLATELET VOLUME 8.9 fL (7.4-11.4); MONOCYTES % (AUTO) 11.8 %; NEUTROPHILS % (AUTO) 24.7 %; PLT - PLATELET COUNT 170 10^3/uL (130-450); RED BLOOD COUNT 4.27 10^6/uL (4.70-6.10); RED CELL DISTRIBUTION WIDTH 15.5 % (12.0-15.0); WHITE BLOOD COUNT 12.8 x10^3/uL (4.8-10.8)
[2017-10-22 06:06] LABS: ALBUMIN 2.4 g/dL (3.2-5.5); ALBUMIN/GLOBULIN RATIO 0.6 (1.0-2.2); BILIRUBIN,TOTAL 5.3 mg/dL (0.2-1.0); CALCIUM 7.8 mg/dL (8.5-10.3); CREATININE 0.5 mg/dL (0.6-1.2); TOTAL PROTEIN 6.1 g/dL (6.7-8.2)
[2017-10-22 06:27] LABS: ABNORMAL LYMPHS % (MANUAL) 2 %; BAND NEUTROPHILS % (MANUAL) 1 %; LYMPHOCYTES # (MANUAL) 8.4 10^3/uL (1.5-3.5); LYMPHOCYTES % (MANUAL) 23 %; MONOCYTES # (MANUAL) 1.5 10^3/uL (0.0-1.0); NEUTROPHILS # (MANUAL) 2.8 10^3/uL (1.5-6.6); NEUTROPHILS % (MANUAL) 21 %
[2017-10-22 06:28] LABS: DIFFERENTIAL COMMENT MANUAL DIFFERENTIAL; PLATELET ESTIMATE, MANUAL NORMAL (130-450,000) (NORMAL); PLATELET MORPHOLOGY NORMAL APPEARANCE (NORMAL); RBC MORPHOLOGY (MULTIPLE) NORMAL APPEARANCE (NORMAL)
[2017-10-22] MEDS: PANTOPRAZOLE 40 MG VIAL IVP SCH (07:07)
[2017-10-22] MEDS: URSODIOL 250 MG TABLET PO SCH (07:43)
[2017-10-22] MEDS ORDERED: HALOPERIDOL 5 MG/ML VIAL IM ONE ×2 (08:09→15:20)
[2017-10-22] MEDS: NICOTINE 21 MG PATCH TOP SCH (08:42)
[2017-10-22] MEDS: POLYETHYLENE GLYCOL 3350 17 GM PACKET PO SCH (08:42)
[2017-10-22] MEDS ORDERED: CALCIUM CITRATE 250 MG TABLET PO SCH (09:00)
--- NOTE | 2017-10-22 14:36 | DISCHARGE SUMMARY ---
Discharge Summary Discharge Date: 10/22/17 Discharging Provider: CARRILLO Primary Care Provider: Melissa Padilla Condition at Discharge: Stable Discharge Disposition: 02 Transfer Acute Care Hosp Discharge Facility Name: [facility] - DIAGNOSES Admission Diagnoses: (1) Right upper quadrant abdominal pain (2) Elevated liver enzymes (3) Continuous illicit drug use (4) Hyponatremia Discharge Diagnoses with Status of Each Condition: (1) Right upper quadrant abdominal pain pt still complain the pain. Surgeon in [facility] did not do the surgery due to the high risk per surgeon's review. [facility] accepted pt for further evaluation and treatment Pt's US of abdomen, CT and MRCP all suggest pt has acute cholecystitis (2) Elevated liver enzymes pt has very high active HepC which can explain the elevated liver enzyme. Pt continue to be managed by [facility] (3) Continuous illicit drug use consult and advise with pt quit the illicit drug usage. (4) Hyponatremia improved, Na 133, continue to be managed by (5)elevated total bilirubin high active HepC and acute cholecystitis can contribute to the elevated total bilirubin. continue to be managed by [facility] (6)lymphocytosis reduced WBC, continue to be managed by [facility] (7)active HepC high copies of RNA, PCR log is 7.4 degree. continue to be managed by [facility] (8) Hallucination/illusion active, continue to be managed [facility] - HPI History of Present Illness: refer from Dr. Garcia's HPI for pt on 10/19/17. - HOSPITAL COURSE Hospital Course: pt was admitted for abdominal pain. CT, US and MRCP of abdomen indicate acute choleocystitis. Pt terminated HIDA scan in the study. P had significant elevated Liver enzyme, total bilirubin. RNA PCR of HepC reveals high copies of RNA, indicate high active HepC infection. Surgeon was consulted. But surgery was not performed to pt per surgeon's review because of high risk of surgery. [facility] was called for help. Pt was accepted. Pt was transferred to [facility] for advanced care. - ALLERGIES Allergies/Adverse Reactions: Allergies Allergy/AdvReac Type Severity Reaction Status Date / Time No Known Drug Allergies Allergy Verified 10/18/17 16:22 - MEDICATIONS Home Medications: Ambulatory Orders Medication Instructions Recorded Confirmed No Known Home Medications [No 10/18/17 10/19/17 Known Home Medications] - PHYSICAL EXAM AT DISCHARGE General Appearance: positive: Alert, Mild distress. negative: Lethargic Eyes Bilateral: positive: Normal inspection, PERRL, No lid inflammation, Conjunctivae nml ENT: positive: ENT inspection nml, Pharynx nml, No signs of dehydration. negative: Purulent nasal drainage, Pharyngeal erythema, Oral lesions Neck: positive: Nml inspection, Thyroid nml, No JVD, Trachea midline. negative : Thyromegaly, Lymphadenopathy (R), Lymphadenopathy (L), Stiff neck, Swelling/ bruising, Tracheal deviation Respiratory: positive: Chest non-tender, No respiratory distress, Breath sounds nml. negative: Wheezes, Rales, Rhonchi Cardiovascular: positive: Regular rate & rhythm, Irregularly irregular. negative: Extrasystoles, Tachycardia, Bradycardia, JVD present, Systolic murmur , Diastolic murmur Peripheral Pulses: positive: 2+ Abdomen: positive: No organomegaly, Nml bowel sounds, No distention, Tenderness. negative: Guarding, Rebound Back: positive: Nml inspection. negative: CVA tenderness (R), CVA tenderness (L ) Skin: positive: Color nml, No rash, Warm, Dry. negative: Cyanosis, Diaphoresis , Pallor Extremities: positive: Non-tender, Full ROM, Nml appearance. negative: Calf tenderness, Joint swelling, Serena's sign/cords Neurologic/Psychiatric: positive: Motor nml, Sensation nml. negative: Sensory loss, Facial droop, Slurred/abnml speech, Depressed mood/affect - LABS Result Diagrams: 10/22/17 05:40 10/22/17 05:40 - FOLLOW UP Follow Up: pt was transferred to [facility] for high level of the care - TIME SPENT Time Spent in Discharge (Minutes): 60
[2017-10-22 15:33] VITALS: BP 94/66
== END 2017-10-22 16:15 | disposition short-term general hospital (02) | DRG 445 ==
LOC: EDUNIT# → ED 16:13 → OBS 19:48 → OBSVTOIN 10-19 13:13 → MS2 10-19 14:54
PROVIDERS: ADMIT Specialist; ATTEND Nurse Practitioner Gerontology
DX: R10.11 Right upper quadrant pain (principal); R10.13 Epigastric pain; R10.816 Epigastric abdominal tenderness; R10.811 Right upper quadrant abdominal tenderness; R17 Unspecified jaundice; R74.8 Abnormal levels of other serum enzymes; R41.89 Other symptoms and signs involving cognitive functions and awareness; G89.29 Other chronic pain; F15.10 Other stimulant abuse, uncomplicated; K21.9 Gastro-esophageal reflux disease without esophagitis; Z59.0 Homelessness; Z86.19 Personal history of other infectious and parasitic diseases; Z87.891 Personal history of nicotine dependence; K81.0 Acute cholecystitis; E87.1 Hypo-osmolality and hyponatremia; F15.151 Other stimulant abuse with stimulant-induced psychotic disorder with hallucinations; B19.20 Unspecified viral hepatitis C without hepatic coma; E86.1 Hypovolemia; F99 Mental disorder, not otherwise specified
CPT/HCPCS: 36415; 74177; 74181; 76705; 78226; 80053; 80074; 80306; 80320; 82140; 83605; 83690; 83735; 84484; 85025; 85610; 87040; 87522; 93005; 96361; 96365; 96366; 96375; 96376; 99284

== ENCOUNTER 2017-12-11 05:56 | Emergency (ER) | payer MEDICARE, MEDICAID ==
[2017-12-11 06:08] VITALS: BP 166/91
--- NOTE | 2017-12-11 07:32 | ED Physician Documentation ---
PD HPI SKIN - Stated complaint Stated Complaint: BOIL ON BUTTOCK - Chief complaint Chief Complaint: Wound - History obtained from History obtained from: Patient - History of Present Illness Timing - onset: How many days ago (8) Timing - duration: Days (8) Timing - details: Gradual onset, Still present Location: Other (right buttocks) Quality / character: Painful, Draining Associated symptoms: No: Fever, Myalgias, Joint pain Similar symptoms before: Diagnosis (boil abcess) Recently seen: Not recently seen - Additional information Additional information: 57-year-old homeless male is developed a boil on his right buttocks. This began to drain and he has encouraged his draining. Review of Systems Constitutional: denies: Fever Eyes: denies: Decreased vision Ears: denies: Ear pain Nose: denies: Congestion Throat: denies: Sore throat Respiratory: denies: Cough GI: denies: Nausea, Vomiting Skin: denies: Rash Musculoskeletal: reports: Other (complains of pains in the ribs, and collar bone that might need some pain medication). denies: Neck pain, Back pain Neurologic: denies: Generalized weakness, Focal weakness, Numbness PD PAST MEDICAL HISTORY - Past Medical History GI: GERD - Past Surgical History Past Surgical History: No - Present Medications Home Medications: Ambulatory Orders Medication Instructions Recorded Confirmed Sulfamethoxazole/Trimethoprim 1 each PO BID #14 tablet 12/11/17 [Sulfamethoxazole-Tmp Ds Tablet] - Allergies Allergies/Adverse Reactions: Allergies Allergy/AdvReac Type Severity Reaction Status Date / Time No Known Drug Allergies Allergy Verified 12/11/17 06:08 - Social History Does the pt smoke?: Yes Smoking Status: Current every day smoker Does the pt drink ETOH?: Yes Does the pt have substance abuse?: Yes - Immunizations Immunizations are current?: No Immunizations: TDAP >10years/unknown - POLST Patient has POLST: No PD ED PE NORMAL - Vitals Vital signs reviewed: Yes (hypertensive ) - General General: No acute distress, Well developed/nourished, Other (57 y/o male lying on his side playing his guitar. ) - HEENT HEENT: Atraumatic, PERRL, EOMI - Neck Neck: Supple, no meningeal sign, No bony TTP - Respiratory Respiratory: No respiratory distress - Derm Derm: Normal color, Warm and dry, Other (There is an ulceration over the right buttocks about 2cm round with draining pus. There is firmness to the tissue surrounding the ulcer and erythema that extends less than 5mm from the border. ) - Extremities Extremities: No deformity, No edema - Neuro Neuro: No motor deficit, No sensory deficit Eye Opening: Spontaneous Motor: Obeys Commands Verbal: Oriented GCS Score: 15 - Psych Psych: Normal mood, Normal affect Results - Vitals Vitals: Vital Signs - 24 hr 12/11/17 06:04 Temperature 36.4 C L Heart Rate 99 Respiratory 18 Rate Blood Pressure 166/91 H O2 Saturation 99 Oxygen O2 Source Room air PD MEDICAL DECISION MAKING - ED course Complexity details: reviewed old records, considered differential, d/w patient ED course: 57-year-old male with a draining ulceration to his right buttocks appears to have had a abscess that is spontaneously opened and drained we will place him on some antibiotic and encourage warm compress. - Sepsis Event Vital Signs: Vital Signs - 24 hr 12/11/17 06:04 Temperature 36.4 C L Heart Rate 99 Respiratory 18 Rate Blood Pressure 166/91 H O2 Saturation 99 Oxygen O2 Source Room air Departure - Departure Disposition: 01 Home, Self Care Clinical Impression: Abscess Condition: Stable Instructions: ED Staph Infec Abx Tx Only Follow-Up: Melissa Bright, [employer] [Primary Care Provider] - Prescriptions: Sulfamethoxazole/Trimethoprim [Sulfamethoxazole-Tmp Ds Tablet] 1 each PO BID # 14 tablet
== END 2017-12-11 07:47 | disposition home or self-care (01) ==
LOC: ED 05:56
DX: L02.31 Cutaneous abscess of buttock (principal); F17.200 Nicotine dependence, unspecified, uncomplicated
CPT/HCPCS: 99283